=== PATIENT | female | born 1945 | race Asian ===

== ENCOUNTER 2017-08-15 20:31 | Inpatient (IN) | payer MEDICARE, OTHER, MEDICAID ==
[2017-08-15 21:44] LABS: ADD MAN DIFF? NO
[2017-08-15 21:46] LABS: BASOPHILS % 0.6 % (0.0-2.0); EOSINOPHILS # 0.2 10^3/ul (0.0-0.5); EOSINOPHILS % 3.2 % (0.0-7.0); HEMATOCRIT 33.6 % (37.0-47.0); LYMPHOCYTES # 1.3 10^3/ul (0.8-2.9); LYMPHOCYTES % 20.6 % (15.0-51.0); MEAN CORPUSCULAR HEMOGLOBIN 31.6 pg (29.0-33.0); MEAN CORPUSCULAR HGB CONC 32.7 g/dl (32.0-37.0); MEAN CORPUSCULAR VOLUME 96.6 fl (82.0-101.0); MEAN PLATELET VOLUME 10.5 fl (7.4-10.4); MONOCYTE # 0.5 10^3/ul (0.3-0.9); MONOCYTES % 7.9 % (0.0-11.0); NEUTROPHIL # 4.4 10^3/ul (1.6-7.5); NEUTROPHILS % 67.2 % (39.0-77.0); PLATELET COUNT 177 10^3/UL (140-415); RED BLOOD COUNT 3.48 10^6/ul (4.20-5.40); RED CELL DISTRIBUTION WIDTH 12.7 % (11.5-14.5)
[2017-08-15 21:46] LABS: WHITE BLOOD COUNT 6.5 10^3/ul (4.8-10.8)
[2017-08-15 21:57] LABS: ADD UMIC YES; UR ASCORBIC ACID NEGATIVE (NEGATIVE); UR BACTERIA MANY /HPF (NONE SEEN); UR BILIRUBIN (Dip) NEGATIVE (NEGATIVE); UR BLOOD (Dip) 2+ mg/dL (NEGATIVE); UR CLARITY CLOUDY (CLEAR); UR COLOR YELLOW (YELLOW); UR GLUCOSE (Dip) 2+ mg/dL (NEGATIVE); UR KETONES (Dip) NEGATIVE (NEGATIVE); UR LEUKOCYTE ESTERASE (Dip) 3+ Leu/ul (NEGATIVE); UR NITRITE (Dip) NEGATIVE (NEGATIVE); UR RBC 5 /HPF (0-5); UR SPECIFIC GRAVITY (Dip) 1.014 (1.003-1.030); UR SQUAMOUS EPITHELIAL CELL FEW /HPF (FEW); UR TOTAL PROTEIN (Dip) 2+ mg/dl (NEGATIVE); UR UROBILINOGEN (Dip) NEGATIVE (NEGATIVE); UR WBC > 182 /HPF (0-5)
[2017-08-15 22:04] LABS: ALANINE AMINOTRANSFERASE 19 IU/L (13-69); ALBUMIN/GLOBULIN RATIO 1.17; ALKALINE PHOSPHATASE 270 IU/L (42-121); ANION GAP 12 (8-16); ASPARTATE AMINO TRANSFERASE 14 IU/L (15-46); BILIRUBIN,INDIRECT 0.5 mg/dl (0-1.1); BILIRUBIN,TOTAL 0.5 mg/dl (0.2-1.3); BLOOD UREA NITROGEN 22 mg/dl (7-20); CALCIUM 9.2 mg/dl (8.4-10.2); CARBON DIOXIDE 22 mmol/L (21-31); CHLORIDE 111 mmol/L (97-110); CREATININE 1.55 mg/dl (0.44-1.00); GLUCOSE 118 mg/dl (70-220); POTASSIUM 3.3 mmol/L (3.5-5.1); SODIUM 142 mmol/L (135-144); TOTAL PROTEIN 7.4 g/dl (6.1-8.1)
[2017-08-15] MEDS: CEFTRIAXONE 1 GM/50 ML (PMX) 50 ML IVPB (23:18)
[2017-08-16] MEDS: SOD CHLORIDE 0.9% 1,000 ML IV ×3 (00:31→14:30)
[2017-08-16] MEDS ORDERED: ONDANSETRON 4 MG INJ IV ×2 (01:00)
[2017-08-16] MEDS ORDERED: NACL 0.9% 3 ML SYG IV (01:00)
[2017-08-16] MEDS ORDERED: morphine 2 MG INJ IV (01:00)
[2017-08-16] MEDS ORDERED: ACETAMINOPHEN 325 MG TAB PO ×2 (01:00)
[2017-08-16] MEDS ORDERED: ALBUTEROL/IPRATROPIUM (NEB) 3 ML AMP HHN (01:00)
[2017-08-16] MEDS ORDERED: PENDING SANTYL ORDER FOR WOUND CARE XX (02:00)
[2017-08-16] MEDS ORDERED: VANCOMYCIN IV PER PHARMACY XX (03:00)
[2017-08-16] MEDS: VANCOMYCIN 1 GM 250 ML IVPB (04:23)
[2017-08-16 05:52] LABS: ADD MAN DIFF? NO
[2017-08-16 05:58] LABS: WHITE BLOOD COUNT 5.8 10^3/ul (4.8-10.8)
[2017-08-16 05:58] LABS: BASOPHIL # 0.1 10^3/ul (0.0-0.1); BASOPHILS % 0.9 % (0.0-2.0); EOSINOPHILS # 0.2 10^3/ul (0.0-0.5); EOSINOPHILS % 3.3 % (0.0-7.0); HEMATOCRIT 28.3 % (37.0-47.0); HEMOGLOBIN 9.2 g/dl (12.0-16.0); LYMPHOCYTES # 1.1 10^3/ul (0.8-2.9); LYMPHOCYTES % 18.9 % (15.0-51.0); MEAN CORPUSCULAR HEMOGLOBIN 31.8 pg (29.0-33.0); MEAN CORPUSCULAR HGB CONC 32.5 g/dl (32.0-37.0); MEAN CORPUSCULAR VOLUME 97.9 fl (82.0-101.0); MEAN PLATELET VOLUME 10.8 fl (7.4-10.4); MONOCYTE # 0.5 10^3/ul (0.3-0.9); MONOCYTES % 8.4 % (0.0-11.0); PLATELET COUNT 150 10^3/UL (140-415); RED BLOOD COUNT 2.89 10^6/ul (4.20-5.40); RED CELL DISTRIBUTION WIDTH 12.6 % (11.5-14.5)
[2017-08-16 06:36] LABS: ALANINE AMINOTRANSFERASE 18 IU/L (13-69); ALBUMIN 3.3 g/dl (3.3-4.9); ALBUMIN/GLOBULIN RATIO 1.32; ALKALINE PHOSPHATASE 241 IU/L (42-121); ANION GAP 13 (8-16); ASPARTATE AMINO TRANSFERASE 14 IU/L (15-46); BILIRUBIN,INDIRECT 0.2 mg/dl (0-1.1); BILIRUBIN,TOTAL 0.2 mg/dl (0.2-1.3); BLOOD UREA NITROGEN 20 mg/dl (7-20); CALCIUM 8.5 mg/dl (8.4-10.2); CARBON DIOXIDE 20 mmol/L (21-31); CHLORIDE 113 mmol/L (97-110); CREATININE 1.35 mg/dl (0.44-1.00); GLUCOSE 103 mg/dl (70-220); POTASSIUM 3.3 mmol/L (3.5-5.1); SODIUM 143 mmol/L (135-144); TOTAL PROTEIN 5.8 g/dl (6.1-8.1)
[2017-08-16] MEDS: HEPARIN 5,000 UNIT/0.5 ML VIAL SC ×2 (09:00→21:49)
[2017-08-16 10:00] LABS: GAMMA GLUTAMYL TRANSPEPTIDASE < 10 IU/L (0-50)
[2017-08-16] MEDS: CEFTRIAXONE 1 GM/50 ML (PMX) 50 ML IVPB ×2 (10:20→21:47)
[2017-08-16] MEDS: GABAPENTIN 100 MG CAP PO (10:25)
[2017-08-16] MEDS: POTASSIUM CHLORIDE (SR) 20 MEQ TAB PO (12:42)
[2017-08-16 17:26] LABS: SODIUM,URINE RANDOM 167 mmol/L (30-90)
[2017-08-16 17:26] LABS: CREATININE,URINE RANDOM 32.98 mg/dl (20-320)
[2017-08-16] MEDS: morphine LIQ (10 MG/5 ML) CUP PO (23:47)
[2017-08-17 05:48] LABS: ADD MAN DIFF? NO
[2017-08-17 05:51] LABS: WHITE BLOOD COUNT 6.6 10^3/ul (4.8-10.8)
[2017-08-17 05:51] LABS: BASOPHIL # 0.1 10^3/ul (0.0-0.1); BASOPHILS % 0.8 % (0.0-2.0); EOSINOPHILS # 0.2 10^3/ul (0.0-0.5); EOSINOPHILS % 2.6 % (0.0-7.0); HEMATOCRIT 29.6 % (37.0-47.0); HEMOGLOBIN 9.5 g/dl (12.0-16.0); LYMPHOCYTES # 1.4 10^3/ul (0.8-2.9); LYMPHOCYTES % 21.2 % (15.0-51.0); MEAN CORPUSCULAR HEMOGLOBIN 31.8 pg (29.0-33.0); MEAN CORPUSCULAR HGB CONC 32.1 g/dl (32.0-37.0); MEAN PLATELET VOLUME 10.7 fl (7.4-10.4); MONOCYTE # 0.6 10^3/ul (0.3-0.9); MONOCYTES % 8.3 % (0.0-11.0); NEUTROPHIL # 4.4 10^3/ul (1.6-7.5); NEUTROPHILS % 66.5 % (39.0-77.0); PLATELET COUNT 146 10^3/UL (140-415); RED BLOOD COUNT 2.99 10^6/ul (4.20-5.40); RED CELL DISTRIBUTION WIDTH 12.5 % (11.5-14.5)
[2017-08-17 06:09] LABS: ANION GAP 12 (8-16); BLOOD UREA NITROGEN 18 mg/dl (7-20); CALCIUM 8.6 mg/dl (8.4-10.2); CARBON DIOXIDE 19 mmol/L (21-31); CHLORIDE 114 mmol/L (97-110); CREATININE 1.27 mg/dl (0.44-1.00); GLUCOSE 84 mg/dl (70-220); PHOSPHORUS 1.7 mg/dl (2.5-4.9); POTASSIUM 3.5 mmol/L (3.5-5.1); SODIUM 141 mmol/L (135-144)
[2017-08-17] MEDS: GABAPENTIN 100 MG CAP PO (08:27)
[2017-08-17] MEDS: NEUTRA-PHOS 250 MG PACKET PO (08:28)
[2017-08-17] MEDS: HEPARIN 5,000 UNIT/0.5 ML VIAL SC (08:29)
[2017-08-17] MEDS: CEFTRIAXONE 1 GM/50 ML (PMX) 50 ML IVPB (08:30)
[2017-08-17] MEDS: AMLODIPINE 2.5 MG TAB PO (08:31)
[2017-08-17] MEDS ORDERED: [UNRECOGNIZED DRUG - OTHER] PO (09:00)
[2017-08-17] MEDS ORDERED: VITAMIN A PO (09:00)
[2017-08-17] MEDS ORDERED: VITAMIN D3 PO (09:00)
[2017-08-17] MEDS: MAGNESIUM OXIDE 400 MG TAB PO (11:30)
[2017-08-17 15:07] LABS: CREATININE, RANDOM URINE 43 mg/dL (20-320); MICROALBUMIN 22.2 mg/dL; MICROALBUMIN/CREATININE RATIO 516 (<30)
== END 2017-08-17 15:27 | disposition home health service (06) | DRG 689 ==
LOC: E/R 20:31 → PP2 08-16 00:33
DX: N39.0 Urinary tract infection, site not specified (principal); L89.153 Pressure ulcer of sacral region, stage 3; N17.9 Acute kidney failure, unspecified; E87.2 Acidosis; Z87.440 Personal history of urinary (tract) infections; R53.1 Weakness; R20.0 Anesthesia of skin; D64.9 Anemia, unspecified; N18.9 Chronic kidney disease, unspecified; E87.6 Hypokalemia; E83.89 Other disorders of mineral metabolism; L89.92 Pressure ulcer of unspecified site, stage 2
CPT/HCPCS: 36415; 72131; 76775; 80048; 80053; 81001; 81003; 82043; 82977; 83735; 84100; 84155; 84300; 85025; 87070; 87086; 96365; 97161; 99285-25

== ENCOUNTER 2017-09-24 13:11 | Inpatient (IN) | payer MEDICARE, OTHER ==
[2017-09-24 16:02] LABS: ADD MAN DIFF? NO
[2017-09-24 16:08] LABS: WHITE BLOOD COUNT 5.1 10^3/ul (4.8-10.8)
[2017-09-24 16:08] LABS: BASOPHILS % 0.4 % (0.0-2.0); EOSINOPHILS # 0.1 10^3/ul (0.0-0.5); EOSINOPHILS % 1.8 % (0.0-7.0); HEMATOCRIT 35.2 % (37.0-47.0); HEMOGLOBIN 11.3 g/dl (12.0-16.0); LYMPHOCYTES # 1.1 10^3/ul (0.8-2.9); LYMPHOCYTES % 20.5 % (15.0-51.0); MEAN CORPUSCULAR HEMOGLOBIN 31.7 pg (29.0-33.0); MEAN CORPUSCULAR HGB CONC 32.1 g/dl (32.0-37.0); MEAN CORPUSCULAR VOLUME 98.6 fl (82.0-101.0); MEAN PLATELET VOLUME 10.7 fl (7.4-10.4); MONOCYTE # 0.4 10^3/ul (0.3-0.9); MONOCYTES % 7.2 % (0.0-11.0); NEUTROPHIL # 3.6 10^3/ul (1.6-7.5); NEUTROPHILS % 69.7 % (39.0-77.0); PLATELET COUNT 160 10^3/UL (140-415); RED BLOOD COUNT 3.57 10^6/ul (4.20-5.40); RED CELL DISTRIBUTION WIDTH 13.1 % (11.5-14.5)
[2017-09-24 16:24] LABS: ANION GAP 11 (8-16); BLOOD UREA NITROGEN 23 mg/dl (7-20); CALCIUM 9.4 mg/dl (8.4-10.2); CARBON DIOXIDE 22 mmol/L (21-31); CHLORIDE 111 mmol/L (97-110); CREATININE 1.22 mg/dl (0.44-1.00); GLUCOSE 104 mg/dl (70-220); POTASSIUM 3.4 mmol/L (3.5-5.1); SODIUM 141 mmol/L (135-144)
[2017-09-24 16:32] LABS: INR 0.92; PROTIME 12.4 Sec (11.9-14.9)
[2017-09-24 16:33] LABS: PARTIAL THROMBOPLASTIN TIME 37.3 Sec (25.0-35.0)
[2017-09-24] MEDS ORDERED: ONDANSETRON 4 MG INJ IV (17:00)
[2017-09-24] MEDS ORDERED: ACETAMINOPHEN 325 MG TAB PO (17:00)
[2017-09-24 17:55] LABS: CHOL/HDL RATIO 2.5 RATIO; HDL CHOLESTEROL 46 mg/dl (33-92); LDL CHOLESTEROL,CALCULATED 58 mg/dl; TRIGLYCERIDES 69 mg/dl (0-149)
[2017-09-24 17:55] LABS: CHOLESTEROL 118 mg/dl (100-200)
[2017-09-24 18:12] LABS: FREE T4 (FREE THYROXINE) 1.01 ng/dl (0.78-2.44)
[2017-09-25] MEDS: PREGABALIN 50 MG CAP PO ×2 (01:33→21:43)
[2017-09-25] MEDS: ACETAMINOPHEN 325 MG TAB PO ×2 (01:33→21:43)
[2017-09-25 06:28] LABS: ADD MAN DIFF? NO
[2017-09-25 06:34] LABS: BASOPHILS % 0.5 % (0.0-2.0); EOSINOPHILS # 0.1 10^3/ul (0.0-0.5); EOSINOPHILS % 2.2 % (0.0-7.0); HEMATOCRIT 32.3 % (37.0-47.0); HEMOGLOBIN 10.3 g/dl (12.0-16.0); LYMPHOCYTES # 1.4 10^3/ul (0.8-2.9); LYMPHOCYTES % 23.4 % (15.0-51.0); MEAN CORPUSCULAR HEMOGLOBIN 31.2 pg (29.0-33.0); MEAN CORPUSCULAR HGB CONC 31.9 g/dl (32.0-37.0); MEAN CORPUSCULAR VOLUME 97.9 fl (82.0-101.0); MEAN PLATELET VOLUME 12.2 fl (7.4-10.4); MONOCYTE # 0.6 10^3/ul (0.3-0.9); MONOCYTES % 9.8 % (0.0-11.0); NEUTROPHIL # 3.7 10^3/ul (1.6-7.5); NEUTROPHILS % 63.9 % (39.0-77.0); PLATELET COUNT 151 10^3/UL (140-415); RED CELL DISTRIBUTION WIDTH 13.2 % (11.5-14.5)
[2017-09-25 06:34] LABS: WHITE BLOOD COUNT 5.8 10^3/ul (4.8-10.8)
[2017-09-25] MEDS: LEVOTHYROXINE 25 MCG TAB PO (07:00)
[2017-09-25 07:44] LABS: ANION GAP 11 (8-16); BLOOD UREA NITROGEN 28 mg/dl (7-20); CALCIUM 9.2 mg/dl (8.4-10.2); CARBON DIOXIDE 21 mmol/L (21-31); CHLORIDE 111 mmol/L (97-110); CREATININE 1.78 mg/dl (0.44-1.00); GLUCOSE 87 mg/dl (70-220); POTASSIUM 3.7 mmol/L (3.5-5.1); SODIUM 139 mmol/L (135-144)
[2017-09-25] MEDS: POTASSIUM CHLORIDE (SR) 10 MEQ TAB PO (08:07)
[2017-09-25 19:16] LABS: TROPONIN-I < 0.010 ng/ml (0.000-0.120)
[2017-09-25] MEDS: DEXTROSE 5%-0.45% NACL 1,000 ML IV (20:46)
[2017-09-26 01:04] LABS: TROPONIN-I < 0.010 ng/ml (0.000-0.120)
[2017-09-26 06:11] LABS: ADD MAN DIFF? NO
[2017-09-26 06:19] LABS: BASOPHILS % 0.3 % (0.0-2.0); EOSINOPHILS # 0.2 10^3/ul (0.0-0.5); EOSINOPHILS % 2.7 % (0.0-7.0); HEMOGLOBIN 10.4 g/dl (12.0-16.0); LYMPHOCYTES # 1.4 10^3/ul (0.8-2.9); LYMPHOCYTES % 23.7 % (15.0-51.0); MEAN CORPUSCULAR HEMOGLOBIN 30.9 pg (29.0-33.0); MEAN CORPUSCULAR HGB CONC 31.5 g/dl (32.0-37.0); MEAN CORPUSCULAR VOLUME 97.9 fl (82.0-101.0); MEAN PLATELET VOLUME 11.7 fl (7.4-10.4); MONOCYTE # 0.5 10^3/ul (0.3-0.9); MONOCYTES % 8.1 % (0.0-11.0); NEUTROPHIL # 3.8 10^3/ul (1.6-7.5); NEUTROPHILS % 64.9 % (39.0-77.0); PLATELET COUNT 144 10^3/UL (140-415); RED BLOOD COUNT 3.37 10^6/ul (4.20-5.40)
[2017-09-26 06:19] LABS: WHITE BLOOD COUNT 5.8 10^3/ul (4.8-10.8)
[2017-09-26] MEDS: LEVOTHYROXINE 25 MCG TAB PO (06:22)
[2017-09-26 06:47] LABS: ANION GAP 10 (8-16); BLOOD UREA NITROGEN 29 mg/dl (7-20); CARBON DIOXIDE 19 mmol/L (21-31); CHLORIDE 112 mmol/L (97-110); CREATININE 1.33 mg/dl (0.44-1.00); GLUCOSE 88 mg/dl (70-220); POTASSIUM 3.4 mmol/L (3.5-5.1); SODIUM 138 mmol/L (135-144)
[2017-09-26 06:57] LABS: TROPONIN-I < 0.010 ng/ml (0.000-0.120)
[2017-09-26] MEDS: POTASSIUM CHLORIDE (SR) 10 MEQ TAB PO (09:15)
[2017-09-26] MEDS: DEXTROSE 5%-0.45% NACL 1,000 ML IV (13:58)
[2017-09-26] MEDS: POTASSIUM CHLORIDE 100 ML IVPB (17:05)
[2017-09-26] MEDS: PREGABALIN 50 MG CAP PO (21:34)
[2017-09-26] MEDS: ACETAMINOPHEN 325 MG TAB PO (22:30)
[2017-09-27 03:02] LABS: ADD MAN DIFF? NO
[2017-09-27 03:06] LABS: BASOPHILS % 0.2 % (0.0-2.0); EOSINOPHILS # 0.1 10^3/ul (0.0-0.5); HEMATOCRIT 34.3 % (37.0-47.0); HEMOGLOBIN 11.3 g/dl (12.0-16.0); LYMPHOCYTES # 1.2 10^3/ul (0.8-2.9); LYMPHOCYTES % 14.6 % (15.0-51.0); MEAN CORPUSCULAR HGB CONC 32.9 g/dl (32.0-37.0); MEAN CORPUSCULAR VOLUME 97.2 fl (82.0-101.0); MEAN PLATELET VOLUME 11.9 fl (7.4-10.4); MONOCYTE # 0.6 10^3/ul (0.3-0.9); MONOCYTES % 6.7 % (0.0-11.0); NEUTROPHIL # 6.4 10^3/ul (1.6-7.5); PLATELET COUNT 151 10^3/UL (140-415); RED BLOOD COUNT 3.53 10^6/ul (4.20-5.40); RED CELL DISTRIBUTION WIDTH 12.8 % (11.5-14.5)
[2017-09-27 03:06] LABS: WHITE BLOOD COUNT 8.3 10^3/ul (4.8-10.8)
[2017-09-27 03:24] LABS: INR 0.94; PROTIME 12.7 Sec (11.9-14.9)
[2017-09-27 03:39] LABS: PHOSPHORUS 2.4 mg/dl (2.5-4.9)
[2017-09-27 03:39] LABS: MAGNESIUM 2.1 mg/dl (1.7-2.5)
[2017-09-27 03:40] LABS: ANION GAP 11 (8-16); BLOOD UREA NITROGEN 21 mg/dl (7-20); CALCIUM 9.5 mg/dl (8.4-10.2); CARBON DIOXIDE 19 mmol/L (21-31); CHLORIDE 113 mmol/L (97-110); CREATININE 1.32 mg/dl (0.44-1.00); GLUCOSE 110 mg/dl (70-220); SODIUM 139 mmol/L (135-144)
[2017-09-27] MEDS: DEXTROSE 5%-0.45% NACL 1,000 ML IV (04:20)
[2017-09-27] MEDS: LEVOTHYROXINE 25 MCG TAB PO (04:53)
[2017-09-27] MEDS: POTASSIUM CHLORIDE (SR) 10 MEQ TAB PO (09:00)
[2017-09-27] MEDS ORDERED: POLYMYXIN/BACITRACIN 1L IRRIG (15:01)
[2017-09-27] MEDS ORDERED: morphine SULFATE/PF (10 MG/10 ML) INJ (15:44)
[2017-09-27] MEDS ORDERED: FENTAnyl 50 MCG/ML VIAL (15:44)
[2017-09-27] MEDS ORDERED: BUPIVACAINE 0.75%/DEXT (SPINAL) 2 ML INJ (15:47)
[2017-09-27] MEDS: POLYMYXIN/BACITRACIN 1L IRRIG IRR (16:37)
[2017-09-27] MEDS ORDERED: PHENYLephrine (100 MCG/ML) 5ML SYG (16:43)
[2017-09-27] MEDS ORDERED: NACL 0.9% 3 ML SYG IV (18:00)
[2017-09-27] MEDS ORDERED: NALOXONE (0.4 MG/ML) INJ IV (18:00)
[2017-09-27] MEDS ORDERED: morphine 2 MG INJ IV (18:30)
[2017-09-27] MEDS: SOD CHLORIDE 0.9% 1,000 ML IV (19:00)
[2017-09-27 19:05] LABS: ADD UMIC YES; UR ASCORBIC ACID NEGATIVE (NEGATIVE); UR BACTERIA MODERATE /HPF (NONE SEEN); UR BILIRUBIN (Dip) NEGATIVE (NEGATIVE); UR BLOOD (Dip) 2+ mg/dL (NEGATIVE); UR CLARITY CLOUDY (CLEAR); UR COLOR YELLOW (YELLOW); UR GLUCOSE (Dip) 3+ mg/dL (NEGATIVE); UR KETONES (Dip) TRACE mg/dL (NEGATIVE); UR LEUKOCYTE ESTERASE (Dip) 3+ Leu/ul (NEGATIVE); UR NITRITE (Dip) NEGATIVE (NEGATIVE); UR RBC 20 /HPF (0-5); UR TOTAL PROTEIN (Dip) 1+ mg/dl (NEGATIVE); UR UROBILINOGEN (Dip) NEGATIVE (NEGATIVE); UR WBC > 182 /HPF (0-5)
[2017-09-27 19:16] LABS: ADD MAN DIFF? NO
[2017-09-27 19:18] LABS: WHITE BLOOD COUNT 9.8 10^3/ul (4.8-10.8)
[2017-09-27 19:18] LABS: BASOPHILS % 0.2 % (0.0-2.0); EOSINOPHILS % 0.4 % (0.0-7.0); HEMATOCRIT 32.8 % (37.0-47.0); HEMOGLOBIN 10.7 g/dl (12.0-16.0); LYMPHOCYTES # 0.7 10^3/ul (0.8-2.9); LYMPHOCYTES % 7.5 % (15.0-51.0); MEAN CORPUSCULAR HEMOGLOBIN 32.2 pg (29.0-33.0); MEAN CORPUSCULAR HGB CONC 32.6 g/dl (32.0-37.0); MEAN CORPUSCULAR VOLUME 98.8 fl (82.0-101.0); MEAN PLATELET VOLUME 11.5 fl (7.4-10.4); MONOCYTE # 0.5 10^3/ul (0.3-0.9); MONOCYTES % 5.4 % (0.0-11.0); NEUTROPHIL # 8.4 10^3/ul (1.6-7.5); PLATELET COUNT 141 10^3/UL (140-415); RED BLOOD COUNT 3.32 10^6/ul (4.20-5.40); RED CELL DISTRIBUTION WIDTH 12.9 % (11.5-14.5)
[2017-09-27 19:39] LABS: ANION GAP 9 (8-16); BLOOD UREA NITROGEN 18 mg/dl (7-20); CARBON DIOXIDE 22 mmol/L (21-31); CHLORIDE 108 mmol/L (97-110); CREATININE 1.12 mg/dl (0.44-1.00); GLUCOSE 130 mg/dl (70-220); POTASSIUM 3.4 mmol/L (3.5-5.1); SODIUM 136 mmol/L (135-144)
[2017-09-27] MEDS: PREGABALIN 50 MG CAP PO (20:49)
[2017-09-28 01:37] LABS: ADD UMIC YES; UR ASCORBIC ACID NEGATIVE (NEGATIVE); UR BACTERIA MANY /HPF (NONE SEEN); UR BILIRUBIN (Dip) NEGATIVE (NEGATIVE); UR BLOOD (Dip) 2+ mg/dL (NEGATIVE); UR CLARITY TURBID (CLEAR); UR COLOR AMBER (YELLOW); UR GLUCOSE (Dip) 3+ mg/dL (NEGATIVE); UR KETONES (Dip) TRACE mg/dL (NEGATIVE); UR LEUKOCYTE ESTERASE (Dip) 2+ Leu/ul (NEGATIVE); UR NITRITE (Dip) NEGATIVE (NEGATIVE); UR RBC 53 /HPF (0-5); UR SPECIFIC GRAVITY (Dip) 1.017 (1.003-1.030); UR TOTAL PROTEIN (Dip) 2+ mg/dl (NEGATIVE); UR UROBILINOGEN (Dip) NEGATIVE (NEGATIVE); UR WBC > 182 /HPF (0-5)
[2017-09-28 05:08] LABS: ADD MAN DIFF? NO
[2017-09-28 05:14] LABS: ABNORMAL IP MESSAGE 1; BASOPHILS % 0.1 % (0.0-2.0); EOSINOPHILS % 0.1 % (0.0-7.0); HEMATOCRIT 29.4 % (37.0-47.0); HEMOGLOBIN 9.6 g/dl (12.0-16.0); LYMPHOCYTES # 0.4 10^3/ul (0.8-2.9); LYMPHOCYTES % 3.4 % (15.0-51.0); MEAN CORPUSCULAR HEMOGLOBIN 32.2 pg (29.0-33.0); MEAN CORPUSCULAR HGB CONC 32.7 g/dl (32.0-37.0); MEAN CORPUSCULAR VOLUME 98.7 fl (82.0-101.0); MEAN PLATELET VOLUME 12.1 fl (7.4-10.4); MONOCYTE # 0.7 10^3/ul (0.3-0.9); MONOCYTES % 5.7 % (0.0-11.0); NEUTROPHIL # 11.2 10^3/ul (1.6-7.5); NEUTROPHILS % 90.3 % (39.0-77.0); PLATELET COUNT 136 10^3/UL (140-415); RED BLOOD COUNT 2.98 10^6/ul (4.20-5.40); RED CELL DISTRIBUTION WIDTH 12.8 % (11.5-14.5)
[2017-09-28 05:14] LABS: WHITE BLOOD COUNT 12.4 10^3/ul (4.8-10.8)
[2017-09-28 05:16] LABS: POSITIVE DIFF @See below
[2017-09-28] MEDS: CEFTRIAXONE 1 GM/50 ML (PMX) 50 ML IVPB (06:19)
[2017-09-28] MEDS: LEVOTHYROXINE 25 MCG TAB PO (06:20)
[2017-09-28 06:24] LABS: ANION GAP 11 (8-16); BLOOD UREA NITROGEN 20 mg/dl (7-20); CALCIUM 8.9 mg/dl (8.4-10.2); CARBON DIOXIDE 20 mmol/L (21-31); CHLORIDE 110 mmol/L (97-110); CREATININE 1.09 mg/dl (0.44-1.00); GLUCOSE 131 mg/dl (70-220); POTASSIUM 4.1 mmol/L (3.5-5.1); SODIUM 137 mmol/L (135-144)
[2017-09-28] MEDS: SOD CHLORIDE 0.9% 1,000 ML IV ×3 (06:30→22:03)
[2017-09-28] MEDS: ENOXAPARIN 30 MG/0.3 ML SYG SC (08:34)
[2017-09-28] MEDS: ONDANSETRON 4 MG INJ IV (11:38)
[2017-09-28] MEDS: ACETAMINOPHEN 325 MG TAB PO (21:04)
[2017-09-28] MEDS: PREGABALIN 50 MG CAP PO (21:04)
[2017-09-29 05:27] LABS: ADD MAN DIFF? NO
[2017-09-29 05:34] LABS: ABNORMAL IP MESSAGE 1; BASOPHILS % 0.2 % (0.0-2.0); EOSINOPHILS % 0.2 % (0.0-7.0); HEMATOCRIT 20.4 % (37.0-47.0); LYMPHOCYTES # 0.8 10^3/ul (0.8-2.9); LYMPHOCYTES % 7.6 % (15.0-51.0); MEAN CORPUSCULAR HEMOGLOBIN 31.8 pg (29.0-33.0); MEAN CORPUSCULAR HGB CONC 32.8 g/dl (32.0-37.0); MEAN CORPUSCULAR VOLUME 96.7 fl (82.0-101.0); MEAN PLATELET VOLUME 12.3 fl (7.4-10.4); MONOCYTES % 9.6 % (0.0-11.0); NEUTROPHIL # 8.4 10^3/ul (1.6-7.5); NEUTROPHILS % 81.7 % (39.0-77.0); PLATELET COUNT 100 10^3/UL (140-415); RED BLOOD COUNT 2.11 10^6/ul (4.20-5.40)
[2017-09-29 05:34] LABS: WHITE BLOOD COUNT 10.3 10^3/ul (4.8-10.8)
[2017-09-29] MEDS: CEFTRIAXONE 1 GM/50 ML (PMX) 50 ML IVPB (05:46)
[2017-09-29 05:53] LABS: HEMOGLOBIN 6.7 g/dl (12.0-16.0)
[2017-09-29 05:54] LABS: POSITIVE DIFF @See below
[2017-09-29 06:10] LABS: ANION GAP 9 (8-16); BLOOD UREA NITROGEN 18 mg/dl (7-20); CALCIUM 8.3 mg/dl (8.4-10.2); CARBON DIOXIDE 19 mmol/L (21-31); CHLORIDE 112 mmol/L (97-110); CREATININE 1.14 mg/dl (0.44-1.00); GLUCOSE 112 mg/dl (70-220); SODIUM 137 mmol/L (135-144)
[2017-09-29 06:17] LABS: PREALBUMIN 8.2 mg/dl (17.6-36.0)
[2017-09-29 06:20] LABS: POTASSIUM 2.9 mmol/L (3.5-5.1)
[2017-09-29] MEDS: LEVOTHYROXINE 25 MCG TAB PO (06:38)
[2017-09-29] MEDS: POTASSIUM CHLORIDE (SR) 20 MEQ TAB PO ×2 (06:38→10:09)
[2017-09-29] MEDS: ENOXAPARIN 30 MG/0.3 ML SYG SC (09:26)
[2017-09-29] MEDS: ACETAMINOPHEN 325 MG TAB PO (10:05)
[2017-09-29] MEDS: HYDROCODONE/APAP (5/325) TAB PO ×2 (15:44→23:41)
[2017-09-29 16:12] LABS: IMMEDIATE SPIN CROSSMATCH 1 6
[2017-09-29] MEDS: SOD CHLORIDE 0.9% 250 ML IV* (16:46)
[2017-09-29] MEDS: SOD CHLORIDE 0.9% 1,000 ML IV (20:40)
[2017-09-29] MEDS: PREGABALIN 50 MG CAP PO (20:40)
[2017-09-30] MEDS: CEFTRIAXONE 1 GM/50 ML (PMX) 50 ML IVPB (05:20)
[2017-09-30] MEDS: LEVOTHYROXINE 25 MCG TAB PO (05:20)
[2017-09-30 05:41] LABS: ADD MAN DIFF? NO
[2017-09-30 05:48] LABS: BASOPHILS % 0.2 % (0.0-2.0); EOSINOPHILS # 0.1 10^3/ul (0.0-0.5); EOSINOPHILS % 0.5 % (0.0-7.0); HEMATOCRIT 25.4 % (37.0-47.0); HEMOGLOBIN 8.6 g/dl (12.0-16.0); LYMPHOCYTES # 1.1 10^3/ul (0.8-2.9); LYMPHOCYTES % 9.3 % (15.0-51.0); MEAN CORPUSCULAR HGB CONC 33.9 g/dl (32.0-37.0); MEAN CORPUSCULAR VOLUME 91.7 fl (82.0-101.0); MEAN PLATELET VOLUME 12.2 fl (7.4-10.4); MONOCYTE # 1.1 10^3/ul (0.3-0.9); MONOCYTES % 9.3 % (0.0-11.0); NEUTROPHIL # 9.1 10^3/ul (1.6-7.5); NEUTROPHILS % 79.8 % (39.0-77.0); PLATELET COUNT 105 10^3/UL (140-415); RED BLOOD COUNT 2.77 10^6/ul (4.20-5.40); RED CELL DISTRIBUTION WIDTH 14.4 % (11.5-14.5)
[2017-09-30 05:48] LABS: WHITE BLOOD COUNT 11.4 10^3/ul (4.8-10.8)
[2017-09-30 06:05] LABS: ANION GAP 9 (8-16); BLOOD UREA NITROGEN 17 mg/dl (7-20); CALCIUM 8.2 mg/dl (8.4-10.2); CARBON DIOXIDE 18 mmol/L (21-31); CHLORIDE 111 mmol/L (97-110); CREATININE 1.09 mg/dl (0.44-1.00); GLUCOSE 109 mg/dl (70-220); POTASSIUM 3.2 mmol/L (3.5-5.1); SODIUM 135 mmol/L (135-144)
[2017-09-30] MEDS: SOD CHLORIDE 0.9% 1,000 ML IV ×2 (07:30→08:30)
[2017-09-30] MEDS: DOCUSATE SODIUM 100 MG CAP PO ×2 (09:22→20:36)
[2017-09-30] MEDS: ENOXAPARIN 30 MG/0.3 ML SYG SC (09:25)
[2017-09-30] MEDS: HYDROCODONE/APAP (5/325) TAB PO ×2 (10:53→20:36)
[2017-09-30] MEDS: DOXYCYCLINE 100 MG TAB PO (20:36)
[2017-09-30] MEDS: PREGABALIN 50 MG CAP PO (20:36)
[2017-10-01] MEDS: HYDROCODONE/APAP (5/325) TAB PO ×2 (04:37→23:56)
[2017-10-01 05:51] LABS: ADD MAN DIFF? NO
[2017-10-01] MEDS: LEVOTHYROXINE 25 MCG TAB PO (05:57)
[2017-10-01 05:58] LABS: BASOPHILS % 0.2 % (0.0-2.0); NEUTROPHIL # 8.6 10^3/ul (1.6-7.5); RED BLOOD COUNT 3.17 10^6/ul (4.20-5.40)
[2017-10-01 06:10] LABS: EOSINOPHILS # 0.1 10^3/ul (0.0-0.5); HEMATOCRIT 29.3 % (37.0-47.0); HEMOGLOBIN 9.9 g/dl (12.0-16.0); LYMPHOCYTES # 0.8 10^3/ul (0.8-2.9); LYMPHOCYTES % 7.4 % (15.0-51.0); MEAN CORPUSCULAR HEMOGLOBIN 31.2 pg (29.0-33.0); MEAN CORPUSCULAR HGB CONC 33.8 g/dl (32.0-37.0); MEAN CORPUSCULAR VOLUME 92.4 fl (82.0-101.0); MEAN PLATELET VOLUME 12.1 fl (7.4-10.4); MONOCYTES % 9.1 % (0.0-11.0); NEUTROPHILS % 81.6 % (39.0-77.0); PLATELET COUNT 137 10^3/UL (140-415)
[2017-10-01 06:10] LABS: WHITE BLOOD COUNT 10.5 10^3/ul (4.8-10.8)
[2017-10-01 06:39] LABS: ANION GAP 11 (8-16); BLOOD UREA NITROGEN 16 mg/dl (7-20); CALCIUM 8.8 mg/dl (8.4-10.2); CARBON DIOXIDE 20 mmol/L (21-31); CHLORIDE 109 mmol/L (97-110); CREATININE 1.02 mg/dl (0.44-1.00); GLUCOSE 110 mg/dl (70-220); SODIUM 137 mmol/L (135-144)
[2017-10-01 06:41] LABS: POTASSIUM 2.8 mmol/L (3.5-5.1)
[2017-10-01] MEDS: POTASSIUM CHLORIDE (SR) 20 MEQ TAB PO ×3 (06:57→21:48)
[2017-10-01] MEDS: DOCUSATE SODIUM 100 MG CAP PO ×2 (09:17→21:48)
[2017-10-01] MEDS: DOXYCYCLINE 100 MG TAB PO ×2 (09:17→21:48)
[2017-10-01] MEDS: ENOXAPARIN 30 MG/0.3 ML SYG SC (09:25)
[2017-10-01] MEDS: BISACODYL (EC) 5 MG TAB PO (12:47)
[2017-10-01] MEDS: SOD CHLORIDE 0.9% 1,000 ML IV (13:03)
[2017-10-01 16:32] LABS: MAGNESIUM 1.9 mg/dl (1.7-2.5)
[2017-10-01] MEDS: BETHANECHOL 25 MG TAB PO (21:48)
[2017-10-01] MEDS: morphine LIQ (10 MG/5 ML) CUP PO (21:48)
[2017-10-01] MEDS: PREGABALIN 50 MG CAP PO (21:48)
[2017-10-02 05:24] LABS: ADD MAN DIFF? NO
[2017-10-02 05:26] LABS: WHITE BLOOD COUNT 18.5 10^3/ul (4.8-10.8)
[2017-10-02 05:26] LABS: ABNORMAL IP MESSAGE 1; BASOPHILS % 0.2 % (0.0-2.0); EOSINOPHILS % 0.2 % (0.0-7.0); HEMATOCRIT 28.7 % (37.0-47.0); HEMOGLOBIN 9.7 g/dl (12.0-16.0); IMMATURE GRANS #M 0.08 10^3/ul; IMMATURE GRANS % (M) 0.4 %; LYMPHOCYTES % 5.4 % (15.0-51.0); MEAN CORPUSCULAR HEMOGLOBIN 31.8 pg (29.0-33.0); MEAN CORPUSCULAR HGB CONC 33.8 g/dl (32.0-37.0); MEAN CORPUSCULAR VOLUME 94.1 fl (82.0-101.0); MEAN PLATELET VOLUME 10.7 fl (7.4-10.4); MONOCYTE # 1.7 10^3/ul (0.3-0.9); NEUTROPHIL # 15.7 10^3/ul (1.6-7.5); NEUTROPHILS % 84.8 % (39.0-77.0); PLATELET COUNT 162 10^3/UL (140-415); RED BLOOD COUNT 3.05 10^6/ul (4.20-5.40); RED CELL DISTRIBUTION WIDTH 13.8 % (11.5-14.5)
[2017-10-02 05:29] LABS: POSITIVE DIFF @See below
[2017-10-02 05:54] LABS: ANION GAP 15 (8-16); BLOOD UREA NITROGEN 17 mg/dl (7-20); CALCIUM 8.8 mg/dl (8.4-10.2); CARBON DIOXIDE 16 mmol/L (21-31); CHLORIDE 108 mmol/L (97-110); GLUCOSE 85 mg/dl (70-220); POTASSIUM 3.8 mmol/L (3.5-5.1); SODIUM 135 mmol/L (135-144)
[2017-10-02] MEDS: LEVOTHYROXINE 25 MCG TAB PO (06:06)
[2017-10-02] MEDS: ENOXAPARIN 30 MG/0.3 ML SYG SC (09:51)
[2017-10-02] MEDS: DOXYCYCLINE 100 MG TAB PO ×2 (09:52→21:00)
[2017-10-02] MEDS: POTASSIUM CHLORIDE (SR) 20 MEQ TAB PO ×2 (09:52→21:00)
[2017-10-02] MEDS: DOCUSATE SODIUM 100 MG CAP PO ×2 (09:52→21:00)
[2017-10-02] MEDS: BETHANECHOL 25 MG TAB PO ×3 (09:52→21:00)
[2017-10-02] MEDS: HYDROCODONE/APAP (5/325) TAB PO (10:11)
[2017-10-02] MEDS: ONDANSETRON 4 MG INJ IV (14:02)
[2017-10-02] MEDS: ACETAMINOPHEN 325 MG TAB PO ×2 (18:25→21:07)
[2017-10-02] MEDS: PREGABALIN 50 MG CAP PO (21:00)
[2017-10-03 05:09] LABS: ADD MAN DIFF? NO
[2017-10-03 05:15] LABS: WHITE BLOOD COUNT 20.1 10^3/ul (4.8-10.8)
[2017-10-03 05:15] LABS: ABNORMAL IP MESSAGE 1; BASOPHILS % 0.2 % (0.0-2.0); EOSINOPHILS # 0.1 10^3/ul (0.0-0.5); EOSINOPHILS % 0.6 % (0.0-7.0); HEMATOCRIT 29.1 % (37.0-47.0); IMMATURE GRANS % (M) 0.5 %; LYMPHOCYTES # 0.8 10^3/ul (0.8-2.9); LYMPHOCYTES % 4.1 % (15.0-51.0); MEAN CORPUSCULAR HEMOGLOBIN 31.9 pg (29.0-33.0); MEAN CORPUSCULAR HGB CONC 34.4 g/dl (32.0-37.0); MEAN PLATELET VOLUME 10.9 fl (7.4-10.4); MONOCYTE # 1.7 10^3/ul (0.3-0.9); MONOCYTES % 8.2 % (0.0-11.0); NEUTROPHIL # 17.4 10^3/ul (1.6-7.5); NEUTROPHILS % 86.4 % (39.0-77.0); PLATELET COUNT 194 10^3/UL (140-415); RED BLOOD COUNT 3.13 10^6/ul (4.20-5.40); RED CELL DISTRIBUTION WIDTH 13.7 % (11.5-14.5)
[2017-10-03 05:26] LABS: POSITIVE DIFF @See below
[2017-10-03 05:27] LABS: ANION GAP 11 (8-16); BLOOD UREA NITROGEN 17 mg/dl (7-20); CARBON DIOXIDE 18 mmol/L (21-31); CHLORIDE 110 mmol/L (97-110); GLUCOSE 110 mg/dl (70-220); POTASSIUM 3.2 mmol/L (3.5-5.1); SODIUM 136 mmol/L (135-144)
[2017-10-03] MEDS: LEVOTHYROXINE 25 MCG TAB PO (06:11)
[2017-10-03] MEDS: DOXYCYCLINE 100 MG TAB PO (08:57)
[2017-10-03] MEDS: BETHANECHOL 25 MG TAB PO ×4 (08:57→22:36)
[2017-10-03] MEDS: POTASSIUM CHLORIDE (SR) 20 MEQ TAB PO ×3 (08:58→22:35)
[2017-10-03] MEDS: DOCUSATE SODIUM 100 MG CAP PO ×3 (08:58→22:35)
[2017-10-03] MEDS: ENOXAPARIN 30 MG/0.3 ML SYG SC (08:58)
[2017-10-03] MEDS ORDERED: VANCOMYCIN IV PER PHARMACY XX (14:00)
[2017-10-03] MEDS: CEFEPIME 1GM/50 ML (PMX) 50 ML IVPB ×2 (14:30→16:39)
[2017-10-03] MEDS: VANCOMYCIN 750 MG in SOD CHLORIDE 0.9% 150 ML IVPB (17:26)
[2017-10-03] MEDS: ACETAMINOPHEN 325 MG TAB PO (17:43)
[2017-10-03] MEDS: PREGABALIN 50 MG CAP PO ×2 (21:00→22:35)
[2017-10-03] MEDS: HYDROCODONE/APAP (5/325) TAB PO (22:35)
[2017-10-04 05:51] LABS: ADD MAN DIFF? NO
[2017-10-04 06:01] LABS: BASOPHIL # 0.1 10^3/ul (0.0-0.1); BASOPHILS % 0.3 % (0.0-2.0); EOSINOPHILS # 0.1 10^3/ul (0.0-0.5); HEMATOCRIT 29.2 % (37.0-47.0); HEMOGLOBIN 9.8 g/dl (12.0-16.0); IMMATURE GRANS #M 0.13 10^3/ul; IMMATURE GRANS % (M) 0.9 %; LYMPHOCYTES # 1.2 10^3/ul (0.8-2.9); LYMPHOCYTES % 8.5 % (15.0-51.0); MEAN CORPUSCULAR HGB CONC 33.6 g/dl (32.0-37.0); MEAN CORPUSCULAR VOLUME 92.4 fl (82.0-101.0); MONOCYTES % 7.1 % (0.0-11.0); NEUTROPHIL # 11.9 10^3/ul (1.6-7.5); NEUTROPHILS % 82.2 % (39.0-77.0); PLATELET COUNT 216 10^3/UL (140-415); RED BLOOD COUNT 3.16 10^6/ul (4.20-5.40); RED CELL DISTRIBUTION WIDTH 13.6 % (11.5-14.5)
[2017-10-04 06:01] LABS: WHITE BLOOD COUNT 14.4 10^3/ul (4.8-10.8)
[2017-10-04] MEDS: LEVOTHYROXINE 25 MCG TAB PO (06:39)
[2017-10-04 06:53] LABS: ALANINE AMINOTRANSFERASE 19 IU/L (13-69); ALBUMIN 3.1 g/dl (3.3-4.9); ALBUMIN/GLOBULIN RATIO 0.96; ALKALINE PHOSPHATASE 177 IU/L (42-121); ANION GAP 10 (8-16); ASPARTATE AMINO TRANSFERASE 21 IU/L (15-46); BILIRUBIN,INDIRECT 0.5 mg/dl (0-1.1); BILIRUBIN,TOTAL 0.5 mg/dl (0.2-1.3); BLOOD UREA NITROGEN 14 mg/dl (7-20); CALCIUM 8.8 mg/dl (8.4-10.2); CARBON DIOXIDE 18 mmol/L (21-31); CHLORIDE 112 mmol/L (97-110); CREATININE 1.12 mg/dl (0.44-1.00); GLUCOSE 112 mg/dl (70-220); SODIUM 137 mmol/L (135-144); TOTAL PROTEIN 6.3 g/dl (6.1-8.1)
[2017-10-04] MEDS: BETHANECHOL 25 MG TAB PO ×3 (08:47→20:56)
[2017-10-04] MEDS: DOCUSATE SODIUM 100 MG CAP PO ×2 (08:47→20:56)
[2017-10-04] MEDS: CEFEPIME 1GM/50 ML (PMX) 50 ML IVPB (08:47)
[2017-10-04] MEDS: POTASSIUM CHLORIDE (SR) 20 MEQ TAB PO (08:48)
[2017-10-04] MEDS: CITRIC ACID/SODIUM CITRATE 15 ML CUP PO ×3 (08:48→20:56)
[2017-10-04] MEDS: ENOXAPARIN 30 MG/0.3 ML SYG SC (08:49)
[2017-10-04] MEDS: ACETAMINOPHEN 325 MG TAB PO ×2 (08:58→16:29)
[2017-10-04] MEDS: POTASSIUM CHLORIDE 100 ML IVPB (10:45)
[2017-10-04] MEDS: VANCOMYCIN 500MG/NS (PMX) 100 ML IVPB (16:26)
[2017-10-04] MEDS: PREGABALIN 50 MG CAP PO (20:56)
[2017-10-04] MEDS: HYDROCODONE/APAP (5/325) TAB PO (21:01)
[2017-10-05 05:20] LABS: ADD MAN DIFF? NO
[2017-10-05 05:31] LABS: BASOPHILS % 0.4 % (0.0-2.0); EOSINOPHILS # 0.1 10^3/ul (0.0-0.5); EOSINOPHILS % 1.5 % (0.0-7.0); HEMATOCRIT 26.3 % (37.0-47.0); HEMOGLOBIN 8.8 g/dl (12.0-16.0); IMMATURE GRANS % (M) 2.2 %; LYMPHOCYTES # 1.2 10^3/ul (0.8-2.9); LYMPHOCYTES % 12.6 % (15.0-51.0); MEAN CORPUSCULAR HEMOGLOBIN 30.9 pg (29.0-33.0); MEAN CORPUSCULAR HGB CONC 33.5 g/dl (32.0-37.0); MEAN CORPUSCULAR VOLUME 92.3 fl (82.0-101.0); MEAN PLATELET VOLUME 10.9 fl (7.4-10.4); MONOCYTE # 1.1 10^3/ul (0.3-0.9); MONOCYTES % 11.9 % (0.0-11.0); NEUTROPHIL # 6.5 10^3/ul (1.6-7.5); NEUTROPHILS % 71.4 % (39.0-77.0); PLATELET COUNT 241 10^3/UL (140-415); RED BLOOD COUNT 2.85 10^6/ul (4.20-5.40); RED CELL DISTRIBUTION WIDTH 13.8 % (11.5-14.5)
[2017-10-05 05:31] LABS: WHITE BLOOD COUNT 9.2 10^3/ul (4.8-10.8)
[2017-10-05 06:06] LABS: ANION GAP 11 (8-16); BLOOD UREA NITROGEN 16 mg/dl (7-20); CALCIUM 8.6 mg/dl (8.4-10.2); CARBON DIOXIDE 20 mmol/L (21-31); CHLORIDE 108 mmol/L (97-110); CREATININE 1.05 mg/dl (0.44-1.00); GLUCOSE 93 mg/dl (70-220); SODIUM 136 mmol/L (135-144)
[2017-10-05 06:15] LABS: MAGNESIUM 2.1 mg/dl (1.7-2.5)
[2017-10-05 06:30] LABS: POTASSIUM 2.6 mmol/L (3.5-5.1)
[2017-10-05] MEDS: LEVOTHYROXINE 25 MCG TAB PO (06:38)
[2017-10-05] MEDS: CEFEPIME 1GM/50 ML (PMX) 50 ML IVPB (08:40)
[2017-10-05] MEDS: BETHANECHOL 25 MG TAB PO ×3 (08:44→20:14)
[2017-10-05] MEDS: DOCUSATE SODIUM 100 MG CAP PO ×2 (08:44→20:14)
[2017-10-05] MEDS: POTASSIUM CHLORIDE (SR) 10 MEQ TAB PO ×2 (08:44→12:27)
[2017-10-05] MEDS: ENOXAPARIN 30 MG/0.3 ML SYG SC (08:47)
[2017-10-05] MEDS: CITRIC ACID/SODIUM CITRATE 15 ML CUP PO ×3 (08:47→20:14)
[2017-10-05] MEDS: ACETAMINOPHEN 325 MG TAB PO (12:27)
[2017-10-05] MEDS: VANCOMYCIN 500MG/NS (PMX) 100 ML IVPB (16:08)
[2017-10-05 18:46] LABS: ANION GAP 11 (8-16); BLOOD UREA NITROGEN 16 mg/dl (7-20); CALCIUM 8.4 mg/dl (8.4-10.2); CARBON DIOXIDE 20 mmol/L (21-31); CHLORIDE 107 mmol/L (97-110); CREATININE 1.11 mg/dl (0.44-1.00); GLUCOSE 113 mg/dl (70-220); POTASSIUM 3.4 mmol/L (3.5-5.1); SODIUM 135 mmol/L (135-144)
[2017-10-05] MEDS: HYDROCODONE/APAP (5/325) TAB PO (20:39)
[2017-10-05] MEDS: PREGABALIN 50 MG CAP PO (20:39)
== END 2017-10-05 22:55 | DRG 470 ==
LOC: MS1 09-25 20:55 → E/R 13:11 → MS1 16:43
PROC: 0SRS0JZ Replacement of Left Hip Joint, Femoral Surface with Synthetic Substitute, Open Approach (ICD-10-PCS; principal; 2017-09-27 14:30)
PROC: 30233N1 Transfusion of Nonautologous Red Blood Cells into Peripheral Vein, Percutaneous Approach (ICD-10-PCS; 2017-09-27 15:39)
DX: M84.459A Pathological fracture, hip, unspecified, initial encounter for fracture (principal); N17.9 Acute kidney failure, unspecified; D62 Acute posthemorrhagic anemia; N39.0 Urinary tract infection, site not specified; I10 Essential (primary) hypertension; M62.81 Muscle weakness (generalized); E03.9 Hypothyroidism, unspecified; R79.89 Other specified abnormal findings of blood chemistry; E87.6 Hypokalemia; R33.9 Retention of urine, unspecified
CPT/HCPCS: 36430; 71045; 73500; 80048; 80053; 80061; 81001; 83735; 84100; 84134; 84439; 84443; 84484; 85025; 85610; 85730; 86644; 86850; 86870; 86900; 86901; 86902; 86920; 87040; 87086; 88305; 88311; 93005; 93306; 97110; 97116; 97163; 97167; 97530; 97535; 99285-25

== ENCOUNTER 2017-10-05 22:55 | Inpatient (IN) | payer MEDICARE, OTHER ==
[2017-10-06] MEDS ORDERED: PENDING SANTYL ORDER FOR WOUND CARE XX
[2017-10-06] MEDS ORDERED: NACL 0.9% 3 ML SYG IV (04:00)
[2017-10-06] MEDS ORDERED: NALOXONE (0.4 MG/ML) INJ IV (04:00)
[2017-10-06] MEDS ORDERED: ONDANSETRON 4 MG INJ IV (04:00)
[2017-10-06] MEDS ORDERED: morphine LIQ (10 MG/5 ML) CUP PO (04:00)
[2017-10-06] MEDS ORDERED: BISACODYL (EC) 5 MG TAB PO (04:00)
[2017-10-06] MEDS ORDERED: VANCOMYCIN IV PER PHARMACY XX (04:00)
[2017-10-06 06:46] LABS: ADD MAN DIFF? NO
[2017-10-06 06:56] LABS: ABNORMAL IP MESSAGE 1; BASOPHIL # 0.1 10^3/ul (0.0-0.1); BASOPHILS % 0.7 % (0.0-2.0); EOSINOPHILS # 0.2 10^3/ul (0.0-0.5); EOSINOPHILS % 1.9 % (0.0-7.0); HEMATOCRIT 25.1 % (37.0-47.0); HEMOGLOBIN 8.4 g/dl (12.0-16.0); IMMATURE GRANS #M 0.54 10^3/ul; IMMATURE GRANS % (M) 6.1 %; LYMPHOCYTES # 1.3 10^3/ul (0.8-2.9); LYMPHOCYTES % 14.7 % (15.0-51.0); MEAN CORPUSCULAR HGB CONC 33.5 g/dl (32.0-37.0); MEAN CORPUSCULAR VOLUME 92.6 fl (82.0-101.0); MEAN PLATELET VOLUME 10.3 fl (7.4-10.4); MONOCYTE # 0.9 10^3/ul (0.3-0.9); MONOCYTES % 9.8 % (0.0-11.0); NEUTROPHIL # 5.9 10^3/ul (1.6-7.5); NEUTROPHILS % 66.8 % (39.0-77.0); PLATELET COUNT 266 10^3/UL (140-415); RED BLOOD COUNT 2.71 10^6/ul (4.20-5.40); RED CELL DISTRIBUTION WIDTH 14.1 % (11.5-14.5)
[2017-10-06 06:56] LABS: WHITE BLOOD COUNT 8.9 10^3/ul (4.8-10.8)
[2017-10-06 06:59] LABS: POSITIVE DIFF @See below
[2017-10-06] MEDS: LEVOTHYROXINE 25 MCG TAB PO (07:25)
[2017-10-06 07:27] LABS: MAGNESIUM 2.2 mg/dl (1.7-2.5)
[2017-10-06 07:46] LABS: ALANINE AMINOTRANSFERASE 19 IU/L (13-69); ALBUMIN 2.8 g/dl (3.3-4.9); ALKALINE PHOSPHATASE 157 IU/L (42-121); ANION GAP 10 (8-16); ASPARTATE AMINO TRANSFERASE 16 IU/L (15-46); BILIRUBIN,INDIRECT 0.6 mg/dl (0-1.1); BILIRUBIN,TOTAL 0.6 mg/dl (0.2-1.3); BLOOD UREA NITROGEN 14 mg/dl (7-20); CALCIUM 8.5 mg/dl (8.4-10.2); CARBON DIOXIDE 22 mmol/L (21-31); CHLORIDE 109 mmol/L (97-110); CREATININE 1.04 mg/dl (0.44-1.00); GLUCOSE 101 mg/dl (70-220); POTASSIUM 3.1 mmol/L (3.5-5.1); SODIUM 138 mmol/L (135-144); TOTAL PROTEIN 5.6 g/dl (6.1-8.1)
[2017-10-06] MEDS: BETHANECHOL 25 MG TAB PO ×3 (09:03→22:10)
[2017-10-06] MEDS: CITRIC ACID/SODIUM CITRATE 15 ML CUP PO ×3 (09:03→22:11)
[2017-10-06] MEDS: DOCUSATE SODIUM 100 MG CAP PO ×3 (09:03→22:19)
[2017-10-06] MEDS: CEFEPIME 1GM/50 ML (PMX) 50 ML IVPB (09:03)
[2017-10-06] MEDS: ENOXAPARIN 30 MG/0.3 ML SYG SC (09:04)
[2017-10-06] MEDS: ACETAMINOPHEN 325 MG TAB PO ×3 (09:05→22:19)
[2017-10-06] MEDS: POTASSIUM CHLORIDE 20 MEQ POWDER FOR ORAL SOLN PO (14:52)
[2017-10-06] MEDS: VANCOMYCIN 500MG/NS (PMX) 100 ML IVPB (15:17)
[2017-10-06] MEDS: PREGABALIN 50 MG CAP PO (22:10)
[2017-10-07] MEDS: LEVOTHYROXINE 25 MCG TAB PO (06:48)
[2017-10-07] MEDS: ACETAMINOPHEN 325 MG TAB PO ×2 (09:44→21:57)
[2017-10-07] MEDS: DOCUSATE SODIUM 100 MG CAP PO ×2 (09:44→21:57)
[2017-10-07] MEDS: CITRIC ACID/SODIUM CITRATE 15 ML CUP PO ×3 (09:44→21:57)
[2017-10-07] MEDS: BETHANECHOL 25 MG TAB PO ×3 (09:44→21:57)
[2017-10-07] MEDS: ENOXAPARIN 30 MG/0.3 ML SYG SC (09:48)
[2017-10-07] MEDS: PREGABALIN 50 MG CAP PO (21:57)
[2017-10-08] MEDS: ACETAMINOPHEN 325 MG TAB PO ×3 (03:14→21:41)
[2017-10-08] MEDS: LEVOTHYROXINE 25 MCG TAB PO (06:31)
[2017-10-08] MEDS: CITRIC ACID/SODIUM CITRATE 15 ML CUP PO ×3 (09:18→21:41)
[2017-10-08] MEDS: ENOXAPARIN 30 MG/0.3 ML SYG SC (09:20)
[2017-10-08] MEDS: BETHANECHOL 25 MG TAB PO ×3 (09:20→21:41)
[2017-10-08] MEDS: DOCUSATE SODIUM 100 MG CAP PO ×2 (09:20→21:41)
[2017-10-08] MEDS: COLLAGENASE 5 GM (UD JAR) TOP (14:30)
[2017-10-08] MEDS: PREGABALIN 50 MG CAP PO (21:41)
[2017-10-09] MEDS: LEVOTHYROXINE 25 MCG TAB PO (06:33)
[2017-10-09] MEDS: COLLAGENASE 5 GM (UD JAR) TOP (08:42)
[2017-10-09] MEDS: CITRIC ACID/SODIUM CITRATE 15 ML CUP PO ×3 (08:42→20:25)
[2017-10-09] MEDS: BETHANECHOL 25 MG TAB PO ×3 (08:43→20:25)
[2017-10-09] MEDS: ENOXAPARIN 30 MG/0.3 ML SYG SC (08:43)
[2017-10-09] MEDS: DOCUSATE SODIUM 100 MG CAP PO ×2 (08:43→20:44)
[2017-10-09] MEDS: ACETAMINOPHEN 325 MG TAB PO ×2 (08:43→20:25)
[2017-10-09] MEDS: PREGABALIN 50 MG CAP PO (20:25)
[2017-10-09] MEDS: HYDROCODONE/APAP (5/325) TAB PO (23:40)
[2017-10-10] MEDS: LEVOTHYROXINE 25 MCG TAB PO (06:13)
[2017-10-10] MEDS: DOCUSATE SODIUM 100 MG CAP PO ×2 (08:41→20:26)
[2017-10-10] MEDS: BETHANECHOL 25 MG TAB PO ×3 (08:41→20:26)
[2017-10-10] MEDS: CITRIC ACID/SODIUM CITRATE 15 ML CUP PO ×3 (08:41→20:26)
[2017-10-10] MEDS: COLLAGENASE 5 GM (UD JAR) TOP (08:42)
[2017-10-10] MEDS: ENOXAPARIN 30 MG/0.3 ML SYG SC (08:44)
[2017-10-10] MEDS: ACETAMINOPHEN 325 MG TAB PO ×2 (09:00→20:32)
[2017-10-10] MEDS: PREGABALIN 50 MG CAP PO (20:26)
[2017-10-11] MEDS: LEVOTHYROXINE 25 MCG TAB PO (06:39)
[2017-10-11] MEDS: BETHANECHOL 25 MG TAB PO ×3 (08:16→21:33)
[2017-10-11] MEDS: COLLAGENASE 5 GM (UD JAR) TOP (08:16)
[2017-10-11] MEDS: ACETAMINOPHEN 325 MG TAB PO ×2 (08:16→21:34)
[2017-10-11] MEDS: DOCUSATE SODIUM 100 MG CAP PO ×2 (08:16→21:33)
[2017-10-11] MEDS: ENOXAPARIN 30 MG/0.3 ML SYG SC (08:17)
[2017-10-11] MEDS: CITRIC ACID/SODIUM CITRATE 15 ML CUP PO ×3 (08:17→21:34)
[2017-10-11] MEDS: PREGABALIN 50 MG CAP PO (21:34)
[2017-10-11] MEDS: HYDROCODONE/APAP (5/325) TAB PO (23:28)
[2017-10-12] MEDS: LEVOTHYROXINE 25 MCG TAB PO (06:27)
[2017-10-12] MEDS: CITRIC ACID/SODIUM CITRATE 15 ML CUP PO ×3 (08:43→20:31)
[2017-10-12] MEDS: DOCUSATE SODIUM 100 MG CAP PO ×2 (08:43→20:34)
[2017-10-12] MEDS: COLLAGENASE 5 GM (UD JAR) TOP ×2 (08:44→13:00)
[2017-10-12] MEDS: BETHANECHOL 25 MG TAB PO ×3 (08:44→20:27)
[2017-10-12] MEDS: ENOXAPARIN 30 MG/0.3 ML SYG SC (08:50)
[2017-10-12] MEDS: ACETAMINOPHEN 325 MG TAB PO (12:37)
[2017-10-12] MEDS: PREGABALIN 50 MG CAP PO (20:27)
[2017-10-12] MEDS: HYDROCODONE/APAP (5/325) TAB PO (20:30)
[2017-10-13] MEDS: LEVOTHYROXINE 25 MCG TAB PO (07:30)
[2017-10-13] MEDS: DOCUSATE SODIUM 100 MG CAP PO ×2 (08:10→21:00)
[2017-10-13] MEDS: BETHANECHOL 25 MG TAB PO (08:10)
[2017-10-13] MEDS: CITRIC ACID/SODIUM CITRATE 15 ML CUP PO ×3 (08:10→21:02)
[2017-10-13] MEDS: HYDROCODONE/APAP (5/325) TAB PO ×3 (08:10→21:07)
[2017-10-13] MEDS: ENOXAPARIN 30 MG/0.3 ML SYG SC (08:14)
[2017-10-13] MEDS: BETHANECHOL 10 MG TAB PO ×3 (10:00→21:02)
[2017-10-13] MEDS: COLLAGENASE 5 GM (UD JAR) TOP (12:22)
[2017-10-13] MEDS: PREGABALIN 50 MG CAP PO (21:02)
[2017-10-14] MEDS: LEVOTHYROXINE 25 MCG TAB PO (06:43)
[2017-10-14] MEDS: COLLAGENASE 5 GM (UD JAR) TOP (08:17)
[2017-10-14] MEDS: BETHANECHOL 10 MG TAB PO ×3 (08:17→21:12)
[2017-10-14] MEDS: HYDROCODONE/APAP (5/325) TAB PO ×2 (08:17→21:13)
[2017-10-14] MEDS: CITRIC ACID/SODIUM CITRATE 15 ML CUP PO ×3 (08:18→21:12)
[2017-10-14] MEDS: DOCUSATE SODIUM 100 MG CAP PO ×2 (08:18→21:12)
[2017-10-14] MEDS: ENOXAPARIN 30 MG/0.3 ML SYG SC (08:23)
[2017-10-14] MEDS: PREGABALIN 50 MG CAP PO (21:12)
[2017-10-15] MEDS: LEVOTHYROXINE 25 MCG TAB PO (06:31)
[2017-10-15] MEDS: CITRIC ACID/SODIUM CITRATE 15 ML CUP PO ×3 (08:22→20:32)
[2017-10-15] MEDS: BETHANECHOL 10 MG TAB PO ×3 (08:22→20:32)
[2017-10-15] MEDS: DOCUSATE SODIUM 100 MG CAP PO ×2 (08:22→20:37)
[2017-10-15] MEDS: ACETAMINOPHEN 325 MG TAB PO (08:24)
[2017-10-15] MEDS: ENOXAPARIN 30 MG/0.3 ML SYG SC (08:24)
[2017-10-15] MEDS: COLLAGENASE 5 GM (UD JAR) TOP (08:26)
[2017-10-15] MEDS: ASCORBIC ACID 500 MG TAB PO (17:48)
[2017-10-15] MEDS: FOLIC ACID 1 MG TAB PO (17:48)
[2017-10-15] MEDS: PREGABALIN 50 MG CAP PO (20:32)
[2017-10-15] MEDS: HYDROCODONE/APAP (5/325) TAB PO (20:33)
[2017-10-16] MEDS: LEVOTHYROXINE 25 MCG TAB PO (06:34)
[2017-10-16] MEDS: DOCUSATE SODIUM 100 MG CAP PO ×2 (09:00→21:00)
[2017-10-16] MEDS: BETHANECHOL 10 MG TAB PO ×3 (09:09→20:28)
[2017-10-16] MEDS: CITRIC ACID/SODIUM CITRATE 15 ML CUP PO ×2 (09:09→12:42)
[2017-10-16] MEDS: ACETAMINOPHEN 325 MG TAB PO (09:10)
[2017-10-16] MEDS: COLLAGENASE 5 GM (UD JAR) TOP (09:11)
[2017-10-16] MEDS: ENOXAPARIN 30 MG/0.3 ML SYG SC (09:11)
[2017-10-16] MEDS: ASCORBIC ACID 500 MG TAB PO (18:28)
[2017-10-16] MEDS: FOLIC ACID 1 MG TAB PO (18:28)
[2017-10-16] MEDS: CITRIC ACID/NA CITRATE 30 ML CUP PO (20:27)
[2017-10-16] MEDS: PREGABALIN 50 MG CAP PO (20:28)
[2017-10-16] MEDS: HYDROCODONE/APAP (5/325) TAB PO (20:28)
[2017-10-17] MEDS: LEVOTHYROXINE 25 MCG TAB PO (07:31)
[2017-10-17] MEDS: COLLAGENASE 5 GM (UD JAR) TOP (09:15)
[2017-10-17] MEDS: CITRIC ACID/NA CITRATE 30 ML CUP PO ×3 (09:15→20:41)
[2017-10-17] MEDS: ENOXAPARIN 30 MG/0.3 ML SYG SC (09:18)
[2017-10-17] MEDS: BETHANECHOL 10 MG TAB PO ×3 (09:20→20:40)
[2017-10-17] MEDS: HYDROCODONE/APAP (5/325) TAB PO ×2 (09:20→20:40)
[2017-10-17] MEDS: DOCUSATE SODIUM 100 MG CAP PO ×2 (09:21→20:40)
[2017-10-17] MEDS: FOLIC ACID 1 MG TAB PO (17:49)
[2017-10-17] MEDS: ASCORBIC ACID 500 MG TAB PO (17:49)
[2017-10-17] MEDS: PREGABALIN 50 MG CAP PO (20:52)
[2017-10-18] MEDS: LEVOTHYROXINE 25 MCG TAB PO (06:46)
[2017-10-18] MEDS: CITRIC ACID/NA CITRATE 30 ML CUP PO ×2 (08:47→15:00)
[2017-10-18] MEDS: HYDROCODONE/APAP (5/325) TAB PO (08:47)
[2017-10-18] MEDS: BETHANECHOL 10 MG TAB PO ×2 (08:47→15:01)
[2017-10-18] MEDS: COLLAGENASE 5 GM (UD JAR) TOP (08:48)
[2017-10-18] MEDS: ENOXAPARIN 30 MG/0.3 ML SYG SC (08:52)
[2017-10-18] MEDS: DOCUSATE SODIUM 100 MG CAP PO (09:55)
== END 2017-10-18 16:00 | disposition home health service (06) | DRG 560 ==
LOC: VRC 22:55
PROC: F07Z5ZZ Bed Mobility Treatment (ICD-10-PCS; principal; 2017-10-05)
PROC: F08Z2ZZ Grooming/Personal Hygiene Treatment (ICD-10-PCS; 2017-10-05)
DX: Z47.1 Aftercare following joint replacement surgery (principal); N39.0 Urinary tract infection, site not specified; N17.9 Acute kidney failure, unspecified; D62 Acute posthemorrhagic anemia; E46 Unspecified protein-calorie malnutrition; Z68.1 Body mass index [BMI] 19.9 or less, adult; S72.002D Fracture of unspecified part of neck of left femur, subsequent encounter for closed fracture with routine healing; Z96.642 Presence of left artificial hip joint; R52 Pain, unspecified; E87.6 Hypokalemia; E03.9 Hypothyroidism, unspecified; I12.9 Hypertensive chronic kidney disease with stage 1 through stage 4 chronic kidney disease, or unspecified chronic kidney disease; N18.9 Chronic kidney disease, unspecified; R33.9 Retention of urine, unspecified; L89.159 Pressure ulcer of sacral region, unspecified stage; M62.81 Muscle weakness (generalized); R79.89 Other specified abnormal findings of blood chemistry
CPT/HCPCS: 80053; 83735; 85025; 87081; 87086; 97110; 97112; 97116; 97150; 97163; 97167; 97530; 97535; 97542

== ENCOUNTER 2017-12-19 05:13 | Emergency (ER) | payer MEDICARE, OTHER | END 2017-12-19 08:37 | disposition home or self-care (01) | LOC: E/R 05:13 | DX: L89.159 Pressure ulcer of sacral region, unspecified stage (principal); E03.9 Hypothyroidism, unspecified; N18.9 Chronic kidney disease, unspecified; I12.9 Hypertensive chronic kidney disease with stage 1 through stage 4 chronic kidney disease, or unspecified chronic kidney disease | CPT/HCPCS: 99281 ==